=== PATIENT | female | born 1955 | race Caucasian/White ===

== ENCOUNTER 2017-09-17 05:12 | Inpatient (IN) | payer BC ==
--- NOTE | 2017-09-17 05:51 | EDM.PDOC ---
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 Annotation/Comment:: TSH mildly elevated with no history of medication noncompliance. Increase her Synthroid therapy with repeat TSH in 4 weeks (5) Influenza B SNOMED Code(s): 80865304 Code(s): J10.1 - FLU DUE TO OTH IDENT INFLUENZA VIRUS W OTH RESP MANIFEST Status: Acute Priority: High Current Visit: Yes Onset Date: ~09/10/17 Annotation/Comment:: Recent influenza the infection as above. Possible concomitant viral and right middle lobe bronchopneumonia with current Ceftin therapy with no significant improvement in symptoms. No leukocytosis or fever at this time. Initiate IV Rocephin and IV Zithromax and attempt to obtain a sputum specimen. Blood cultures 2 were collected (6) Influenza with bronchopneumonia SNOMED Code(s): 51002350 Code(s): J11.08 - FLU DUE TO UNIDENTIFIED FLU VIRUS W SPECIFIED PNEUMONIA; J12.89 - OTHER VIRAL PNEUMONIA Status: Acute Priority: High Current Visit : Yes Onset Date: ~09/17/17 Annotation/Comment:: Possible concomitant right middle lobe pneumonia as above (7) Mixed anxiety depressive disorder SNOMED Code(s): 106595413 Code(s): F41.8 - OTHER SPECIFIED ANXIETY DISORDERS Status: Acute Priority : High Current Visit: Yes Onset Date: 09/17/17 Annotation/Comment:: Good results of IV diazepam with no subsequent hyperventilation. Consider additional medical therapy, etc. (8) Osteoarthritis SNOMED Code(s): 214823704 Code(s): M19.90 - UNSPECIFIED OSTEOARTHRITIS, UNSPECIFIED SITE Status: Chronic Priority: Medium Current Visit: Yes Annotation/Comment:: Additional history of osteoporosis with lumbar vertebral body compression fracture. Otherwise stable by history Qualifiers: Osteoarthritis location: multiple joints Osteoarthritis type: primary Qualified Code(s): M15.0 - Primary generalized (osteo)arthritis (9) Peptic reflux disease SNOMED Code(s): 34742164 Code(s): K21.9 - GASTRO-ESOPHAGEAL REFLUX DISEASE WITHOUT ESOPHAGITIS Status: Chronic Priority: Medium Current Visit: Yes Annotation/Comment:: Recently diagnosed probable chronic cough secondary to GERD. Patient has yet to start her omeprazole secondary to her current illness. Initiate during this hospitalization (10) Pulmonary nodule SNOMED Code(s): 143312821 Code(s): R91.1 - SOLITARY PULMONARY NODULE Status: Acute Priority: High Current Visit: Yes Onset Date: 09/17/17 Annotation/Comment:: Newly diagnosed right upper lobe pulmonary nodule as above. Likely site of inflammation rather than true malignancy, however note previous history of tobacco use. Per recommendations of the radiologist CT scan of the chest should be repeated in about 3 months. - Problem List Review Problem List Initiated/Reviewed/Updated: Yes - My Orders Last 24 Hours: My Active Orders 09/17/17 05:52 Cardiac Monitoring [RC] CONTINUOUS Peripheral IV Care [RC] . DIRECTED Pulse Oximetry [RC] CONTINUOUS Up With Assistance [RC] ASDIRECTED Chest 1V Frontal [CR] Stat CULTURE SPUTUM + SMEAR [RM] Urgent Sodium Chloride 0.9% [Saline Flush] 10 ml FLUSH ASDIRECTED PRN Blood Culture x2 Reflex Set [OM.PC] Stat Obtain Past Medical Record [OM.PC] Stat Peripheral IV Insertion Adult [OM.PC] Stat Resuscitation Status Routine 09/17/17 05:59 EKG Documentation Completion [RC] ASDIRECTED 09/17/17 06:00 CULTURE STREP A CONFIRMATION [RM] Stat STREP SCRN A RAPID W CULT CONF [RM] Stat 09/17/17 06:05 CULTURE BLOOD [BC] Stat 09/17/17 06:15 CULTURE BLOOD [BC] Stat 09/17/17 06:20 Oxygen Therapy, ED [RC] CONTINUOUS 09/17/17 06:49 Chest PE [Ang Chest] [CT] Stat 09/17/17 07:30 Lactated Ringers [Ringers, Lactated] 1,000 ml IV ASDIRECTED 09/17/17 Breakfast Nothing Per Oral Diet [DIET] - Assessment/Plan Admission H&P: Please use this note as an admission H&P Last 24 Hours: My Active Orders 09/17/17 05:52 Cardiac Monitoring [RC] CONTINUOUS Peripheral IV Care [RC] . DIRECTED Pulse Oximetry [RC] CONTINUOUS Up With Assistance [RC] ASDIRECTED Chest 1V Frontal [CR] Stat CULTURE SPUTUM + SMEAR [RM] Urgent Sodium Chloride 0.9% [Saline Flush] 10 ml FLUSH ASDIRECTED PRN Blood Culture x2 Reflex Set [OM.PC] Stat Obtain Past Medical Record [OM.PC] Stat Peripheral IV Insertion Adult [OM.PC] Stat Resuscitation Status Routine 09/17/17 05:59 EKG Documentation Completion [RC] ASDIRECTED 09/17/17 06:00 CULTURE STREP A CONFIRMATION [RM] Stat STREP SCRN A RAPID W CULT CONF [RM] Stat 09/17/17 06:05 CULTURE BLOOD [BC] Stat 09/17/17 06:15 CULTURE BLOOD [BC] Stat 09/17/17 06:20 Oxygen Therapy, ED [RC] CONTINUOUS 09/17/17 06:49 Chest PE [Ang Chest] [CT] Stat 09/17/17 07:30 Lactated Ringers [Ringers, Lactated] 1,000 ml IV ASDIRECTED 09/17/17 Breakfast Nothing Per Oral Diet [DIET] Assessment:: As above Plan: As above. Extensive precautions were given to the patient and her daughter, who are in agreement with the treatment plan. The patient will require about 3-4 days of inpatient/acute care secondary to multiple health problems as above. [facility] physician will round on the patient tomorrow
[2017-09-17] MEDS: Sodium Chloride 0.9% 10 ML Syringe FLUSH PRN (06:10)
[2017-09-17] MEDS ORDERED: Lactated Ringers 1,000 ML IV ONE (06:12)
[2017-09-17 06:37] LABS: CHLORIDE,CL 105 mmol/L (98-107); SODIUM,NA 141 mmol/L (136-145)
[2017-09-17] MEDS ORDERED: Iopamidol 755 Mg/ML 100 ML Bottle IVPUSH ONE (07:00)
[2017-09-17] MEDS: Lactated Ringers 1,000 ML IV SCH ×2 (07:38→18:41)
[2017-09-17] MEDS ORDERED: Albuterol/Ipratropium 3.0-0.5 MG/3 ML Neb Soln NEB PRN (09:17)
[2017-09-17] MEDS ORDERED: Temazepam 15 MG Cap PO PRN (09:17)
[2017-09-17] MEDS ORDERED: Albuterol 0.083% 2.5 MG/3 ML Neb Soln NEB PRN (10:00)
[2017-09-17] MEDS: Levofloxacin/Dextrose 5%-Water 500 MG in Premix Bag 1 BAG IV SCH (10:19)
[2017-09-17] MEDS: Enoxaparin 40 MG/0.4 ML Syringe SUBCUT SCH ×2 (10:20→21:18)
[2017-09-17] MEDS: Levothyroxine 100 MCG Tab PO SCH (10:20)
[2017-09-17] MEDS: Sodium Chloride 0.9% 10 ML Syringe FLUSH SCH ×2 (10:25→21:37)
[2017-09-17] MEDS: Azithromycin 500 MG in Sodium Chloride 0.9% 250 ML IV SCH (12:37)
[2017-09-17] MEDS: Albuterol/Ipratropium 3.0-0.5 MG/3 ML Neb Soln NEB SCH ×2 (13:18→21:18)
[2017-09-17] MEDS ORDERED: LORazepam 2 MG/ML SDV IVPUSH ONE (13:59)
[2017-09-17] MEDS: Citalopram 20 MG Tab PO SCH (14:16)
[2017-09-17] MEDS: LORazepam 0.5 MG Tab PO SCH (17:37)
[2017-09-17] MEDS: Dextromethorphan/guaiFENesin 600-30 MG Tab.ER PO SCH (17:37)
[2017-09-17] MEDS: Budesonide 0.5 MG/2 ML Neb Susp NEB SCH (21:18)
[2017-09-18] MEDS: Albuterol/Ipratropium 3.0-0.5 MG/3 ML Neb Soln NEB SCH ×4 (03:05→20:50)
[2017-09-18] MEDS: Lactated Ringers 1,000 ML IV SCH (03:12)
[2017-09-18] MEDS: Dextromethorphan/guaiFENesin 600-30 MG Tab.ER PO SCH ×2 (07:28→17:04)
[2017-09-18] MEDS: Citalopram 20 MG Tab PO SCH (07:29)
[2017-09-18] MEDS: LORazepam 0.5 MG Tab PO SCH ×3 (07:29→23:39)
[2017-09-18] MEDS: Levothyroxine 100 MCG Tab PO SCH (07:29)
[2017-09-18] MEDS: Budesonide 0.5 MG/2 ML Neb Susp NEB SCH ×2 (07:31→20:50)
[2017-09-18 07:47] LABS: CHLORIDE,CL 111 mmol/L (98-107); SODIUM,NA 144 mmol/L (136-145)
[2017-09-18] MEDS: Enoxaparin 40 MG/0.4 ML Syringe SUBCUT SCH ×2 (10:14→21:12)
[2017-09-18] MEDS: Sodium Chloride 0.9% 10 ML Syringe FLUSH SCH ×2 (10:15→21:13)
[2017-09-18] MEDS: Levofloxacin/Dextrose 5%-Water 500 MG in Premix Bag 1 BAG IV SCH (10:15)
[2017-09-18] MEDS: Azithromycin 500 MG in Sodium Chloride 0.9% 250 ML IV SCH (11:45)
[2017-09-18] MEDS ORDERED: Magnesium Oxide 400 MG Tab PO ONE (12:57)
--- NOTE | 2017-09-18 13:18 | PCM.PN ---
- General Info Date of Service: 09/18/17 Admission Dx/Problem (Free Text): Influenza, shortness of breath, anxiety with dehydration Subjective Update: Patient feels about the same as yesterday. She reports feeling very anxious, also continues to feel weak and have mild sore throat. Shortness of breath is improved since she was evaluated in the ER. No new complaints. Functional Status: Reports: Pain Controlled, Tolerating Diet (Poor appetite), Ambulating. Denies: New Symptoms - Review of Systems General: Reports: Weakness, Fatigue. Denies: Fever, Malaise, Chills, Night Sweats HEENT: Reports: Rhinitis Pulmonary: Reports: Shortness of Breath, Cough (mild). Denies: Pleuritic Chest Pain, Sputum, Hemoptysis, Wheezing Cardiovascular: Reports: No Symptoms Gastrointestinal: Reports: Decreased Appetite, Diarrhea (mild). Denies: Abdominal Pain, Constipation, Difficulty Swallowing, Hematochezia, Melena, Nausea, Vomiting Genitourinary: Reports: No Symptoms Musculoskeletal: Reports: No Symptoms Skin: Reports: No Symptoms Neurological: Denies: Confusion, Dizziness, Headache, Numbness, Paresthesia, Seizure, Syncope, Trouble Speaking, Difficulty Walking, Weakness, Change in Speech, Gait Disturbance Psychiatric: Reports: Anxiety. Denies: Confusion, Depression, Cravings, Hallucinations, Suicidal Ideation, Homicidal Ideation - Patient Data Vitals - Most Recent: Last Vital Signs Temp 36.4 C 09/18/17 10:56 Pulse 82 09/18/17 10:56 Resp 22 H 09/18/17 04:00 BP 120/68 09/18/17 10:56 Pulse Ox 98 09/18/17 10:56 Weight - Most Recent: 73.119 kg I&O - Last 24 Hours: Intake & Output 09/17/17 09/18/17 09/18/17 22:59 06:59 14:59 Intake Total 650 120 500 Output Total 896 063 8377 Balance 250 -380 -800 Lab Results Last 24 Hours: Laboratory Results - last 24 hr 09/17/17 09/17/17 09/18/17 Range/Units 17:37 17:37 07:00 WBC 3.4 L (4.0-10.2) K/uL RBC 3.77 (3.77-5.09) M/uL Hgb 11.0 L D (11.7-15.5) g/dL Hct 34.2 (34.0-46.0) % MCV 90.7 (84.0-98.0) fL MCH 29.2 (28.2-33.3) pg MCHC 32.2 (31.7-36.0) g/dL RDW 14.8 H (11.2-14.1) % Plt Count 212 D (150-350) K/uL Neut % (Auto) 54.7 (45.0-80.0) % Lymph % (Auto) 30.1 (10.0-50.0) % [place] % (Auto) 14.3 H (2.0-14.0) % Eos % (Auto) 0.9 (0.0-5.0) % Baso % (Auto) 0.0 (0.0-2.0) % Neut # (Auto) 1.83 (1.40-7.00) K/uL Lymph # (Auto) 1.01 (0.50-3.50) K/uL [place] # (Auto) 0.48 (0.00-1.00) K/uL Eos # (Auto) 0.03 (0.00-0.50) K/uL Baso # (Auto) 0.00 (0.00-0.20) K/uL Sodium (136-145) mmol/L Potassium (3.5-5.1) mmol/L Chloride (98-107) mmol/L Carbon Dioxide (21.0-32.0) mmol/L BUN (7-18) mg/dL Creatinine (0.51-1.17) mg/dL Est Cr Clr Drug Dosing mL/min Estimated GFR (MDRD) mL/min Glucose (74-106) mg/dL Calcium (8.5-10.1) mg/dL Total Bilirubin (0.2-1.0) mg/dL AST (15-37) U/L ALT (12-78) U/L Alkaline Phosphatase (46-116) IU/L Creatine Kinase 24 L (26-308) U/L Creatine Kinase Index 0.8 (0.0-2.5) % CK-MB (CK-2) 0.20 (0.00-3.60) ng/mL Troponin I 0.025 (0.000-0.056) ng/mL Total Protein (6.4-8.2) g/dL Albumin (3.4-5.0) g/dL 09/18/17 Range/Units 07:00 WBC (4.0-10.2) K/uL RBC (3.77-5.09) M/uL Hgb (11.7-15.5) g/dL Hct (34.0-46.0) % MCV (84.0-98.0) fL MCH (28.2-33.3) pg MCHC (31.7-36.0) g/dL RDW (11.2-14.1) % Plt Count (150-350) K/uL Neut % (Auto) (45.0-80.0) % Lymph % (Auto) (10.0-50.0) % [place] % (Auto) (2.0-14.0) % Eos % (Auto) (0.0-5.0) % Baso % (Auto) (0.0-2.0) % Neut # (Auto) (1.40-7.00) K/uL Lymph # (Auto) (0.50-3.50) K/uL [place] # (Auto) (0.00-1.00) K/uL Eos # (Auto) (0.00-0.50) K/uL Baso # (Auto) (0.00-0.20) K/uL Sodium 144 (136-145) mmol/L Potassium 3.7 (3.5-5.1) mmol/L Chloride 111 H (98-107) mmol/L Carbon Dioxide 25.0 (21.0-32.0) mmol/L BUN 6 L (7-18) mg/dL Creatinine 0.67 (0.51-1.17) mg/dL Est Cr Clr Drug Dosing 78.34 mL/min Estimated GFR (MDRD) > 60 mL/min Glucose 98 (74-106) mg/dL Calcium 8.1 L (8.5-10.1) mg/dL Total Bilirubin 0.2 (0.2-1.0) mg/dL AST 22 (15-37) U/L ALT 23 (12-78) U/L Alkaline Phosphatase 47 (46-116) IU/L Creatine Kinase 19 L (26-308) U/L Creatine Kinase Index 0.5 (0.0-2.5) % CK-MB (CK-2) 0.10 (0.00-3.60) ng/mL Troponin I 0.030 (0.000-0.056) ng/mL Total Protein 5.6 L (6.4-8.2) g/dL Albumin 2.6 L (3.4-5.0) g/dL Max Results Last 24 Hours: Microbiology 09/17/17 17:50 Stool Occult Blood (MAX) - Final Stool / Feces NEGATIVE OCCULT BLOOD Med Orders - Current: Current Medications Albuterol (Proventil Neb Soln) 2.5 mg NEB Q2H PRN PRN Reason: Dyspnea Albuterol/Ipratropium (Duoneb 3.0-0.5 Mg/3 Ml) 3 ml NEB Q4HRRT PRN PRN Reason: Dyspnea Albuterol/Ipratropium (Duoneb 3.0-0.5 Mg/3 Ml) 3 ml NEB Q6HRRT [facility] Last Admin: 09/18/17 07:31 Dose: 3 ml Budesonide (Pulmicort) 0.5 mg NEB BIDRT [facility] Last Admin: 09/18/17 07:31 Dose: 0.5 mg Cholecalciferol (Vitamin D3) 2,000 units PO DAILY [facility] Citalopram Hydrobromide (Celexa) 20 mg PO DAILY [facility] Last Admin: 09/18/17 07:29 Dose: 20 mg Enoxaparin Sodium (Lovenox) 40 mg SUBCUT Q12H [facility] Last Admin: 09/18/17 10:14 Dose: 40 mg Guaifenesin/Dextromethorphan (Mucinex Dm Er 600-30 Mg) 1 tab PO BID [facility] Last Admin: 09/18/17 07:28 Dose: 1 tab Azithromycin 500 mg/ Sodium (Chloride) 250 mls @ 250 mls/hr IV Q24H [facility] Last Admin: 09/18/17 11:45 Dose: 250 mls/hr Levofloxacin/Dextrose 500 mg/ (Premix) 100 mls @ 100 mls/hr IV Q24H [facility] Last Admin: 09/18/17 10:15 Dose: 100 mls/hr Levothyroxine Sodium (Synthroid) 100 mcg PO ACBREAKFAST [facility] Last Admin: 09/18/17 07:29 Dose: 100 mcg Lorazepam (Ativan) 0.5 mg PO BID [facility] Last Admin: 09/18/17 07:29 Dose: 0.5 mg Magnesium Oxide (Magnesium Oxide) 400 mg PO ONETIME ONE Stop: 09/18/17 12:58 Sodium Chloride (Saline Flush) 10 ml FLUSH ASDIRECTED PRN PRN Reason: Keep Vein Open Last Admin: 09/17/17 06:10 Dose: 10 ml Sodium Chloride (Saline Flush) 10 ml FLUSH Q12H [facility] Last Admin: 09/18/17 10:15 Dose: 10 ml Temazepam (Restoril) 15 mg PO BEDTIME PRN PRN Reason: Insomnia Last Admin: 09/17/17 21:37 Dose: 15 mg Discontinued Medications Diazepam (Valium) 2.5 mg IVPUSH ONETIME ONE Stop: 09/17/17 05:53 Last Admin: 09/17/17 06:09 Dose: 2.5 mg Lactated Ringer's (Ringers, Lactated) 1,000 mls @ 999 mls/hr IV .BOLUS ONE Stop: 09/17/17 07:12 Last Admin: 09/17/17 06:14 Dose: 999 mls/hr Lactated Ringer's (Ringers, Lactated) 1,000 mls @ 100 mls/hr IV ASDIRECTED [facility] Last Admin: 09/18/17 03:12 Dose: 100 mls/hr Iopamidol (Isovue-370 (76%)) 100 ml IVPUSH ONETIME ONE Stop: 09/17/17 07:01 Last Admin: 09/17/17 07:34 Dose: 100 ml Lorazepam (Ativan) 1 mg IVPUSH ONETIME ONE Stop: 09/17/17 14:00 Last Admin: 09/17/17 14:30 Dose: 1 mg - Exam Quality Assessment: DVT Prophylaxis General: Alert, Oriented, Cooperative HEENT: Pupils Equal, Pupils Reactive Neck: Supple Lungs: Clear to Auscultation, Normal Respiratory Effort Cardiovascular: Regular Rate, Regular Rhythm GI/Abdominal Exam: Normal Bowel Sounds, Soft, Non-Tender, No Distention, No Mass (Female) Exam: Deferred Back Exam: Normal Inspection. No: CVA Tenderness (L), CVA Tenderness (R) Extremities: Normal Inspection, Normal Range of Motion, Non-Tender, No Pedal Edema, Normal Capillary Refill Peripheral Pulses: 2+: Radial (L), Radial (R) Skin: Warm, Dry, Intact Neurological: No New Focal Deficit Psy/Mental Status: Alert, Anxious. No: Depressed, Suicidal Ideation, Homicidal Ideation, Hallucinations - Problem List & Annotations (1) D-dimer, elevated SNOMED Code(s): 673509828 Code(s): R79.89 - OTHER SPECIFIED ABNORMAL FINDINGS OF BLOOD CHEMISTRY Status: Acute Priority: High Current Visit: Yes Onset Date: 09/17/17 Annotation/Comment:: Negative CTA evaluation of the chest for PE as well as negative venous dopplar study. Lovenox as DVT prophylaxis. (2) Influenza B SNOMED Code(s): 73668956 Code(s): J10.1 - FLU DUE TO OTH IDENT INFLUENZA VIRUS W OTH RESP MANIFEST Status: Acute Priority: High Current Visit: Yes Onset Date: ~09/10/17 Annotation/Comment:: Recent influenza the infection as above. Possible concomitant viral and right middle lobe bronchopneumonia with current Ceftin therapy with no significant improvement in symptoms. No leukocytosis or fever at this time. Initiate IV Rocephin and IV Zithromax and attempt to obtain a sputum specimen. Blood cultures 2 were collected (3) Influenza with bronchopneumonia SNOMED Code(s): 31175613 Code(s): J11.08 - FLU DUE TO UNIDENTIFIED FLU VIRUS W SPECIFIED PNEUMONIA; J12.89 - OTHER VIRAL PNEUMONIA Status: Acute Priority: High Current Visit : Yes Onset Date: ~09/17/17 Annotation/Comment:: Possible concomitant right middle lobe pneumonia as above (4) Dehydration SNOMED Code(s): 01550341 Code(s): E86.0 - DEHYDRATION Status: Acute Priority: High Current Visit : Yes Onset Date: ~09/17/17 Annotation/Comment:: Improved. Patient has been receiving IV fluids since admission. Will saline lock at this time and continue to observe. (5) Mixed anxiety depressive disorder SNOMED Code(s): 586169392 Code(s): F41.8 - OTHER SPECIFIED ANXIETY DISORDERS Status: Acute Priority : High Current Visit: Yes Onset Date: 09/17/17 Annotation/Comment:: Patient continues to feel very anxious. Says that she does not normally feel this way. She feels that the problem really started on Saturday, two days ago. No specific med changes at that time, however, whe was recently started on the nebulizer treatments which may be contributing factor to the anxiety. It is noted that patient's respiratory rate is improved when she is resting alone in the room. It increases very rapidly once someone comes in to the room and interacts with the patient. Was noted to be improved s/p Diazepam. (6) Pulmonary nodule SNOMED Code(s): 249988583 Code(s): R91.1 - SOLITARY PULMONARY NODULE Status: Acute Priority: High Current Visit: Yes Onset Date: 09/17/17 Annotation/Comment:: Newly diagnosed right upper lobe pulmonary nodule as above. Likely site of inflammation rather than true malignancy, however note previous history of tobacco use. Per recommendations of the radiologist CT scan of the chest should be repeated in about 3 months. (7) COPD (chronic obstructive pulmonary disease) SNOMED Code(s): 40263543 Code(s): J44.9 - CHRONIC OBSTRUCTIVE PULMONARY DISEASE, UNSPECIFIED Status : Chronic Priority: Medium Current Visit: Yes Qualifiers: COPD type: COPD with acute lower respiratory infection Qualified Code(s): J44.0 - Chronic obstructive pulmonary disease with acute lower respiratory infection Annotation/Comment:: Patient has been recently somewhat noncompliant with her nebulizer treatments as above. Attempt to reinitiate this therapy during this hospitalization. Note previous history of tobacco use. Consider PFTs once her current symptoms have resolved depending on her clinical course (8) Hypothyroidism (acquired) SNOMED Code(s): 033502778 Code(s): E03.9 - HYPOTHYROIDISM, UNSPECIFIED Status: Chronic Priority: Medium Current Visit: Yes Annotation/Comment:: TSH mildly elevated with no history of medication noncompliance. Increase her Synthroid therapy with repeat TSH in 4 weeks (9) Osteoarthritis SNOMED Code(s): 375612638 Code(s): M19.90 - UNSPECIFIED OSTEOARTHRITIS, UNSPECIFIED SITE Status: Chronic Priority: Medium Current Visit: Yes Qualifiers: Osteoarthritis location: multiple joints Osteoarthritis type: primary Qualified Code(s): M15.0 - Primary generalized (osteo)arthritis Annotation/Comment:: Additional history of osteoporosis with lumbar vertebral body compression fracture. Otherwise stable by history (10) Peptic reflux disease SNOMED Code(s): 70060018 Code(s): K21.9 - GASTRO-ESOPHAGEAL REFLUX DISEASE WITHOUT ESOPHAGITIS Status: Chronic Priority: Medium Current Visit: Yes Annotation/Comment:: Recently diagnosed probable chronic cough secondary to GERD. Patient has yet to start her omeprazole secondary to her current illness. Initiate during this hospitalization - Problem List Review Problem List Initiated/Reviewed/Updated: Yes - My Orders Last 24 Hours: My Active Orders 09/18/17 12:57 Magnesium Oxide 400 mg PO ONETIME ONE 09/18/17 13:30 Cholecalciferol (Vitamin D3) [Vitamin D3] 2,000 units PO DAILY - Assessment Assessment:: Patient with recent Influenza B diagnosis with dehydration and complaint of feeling SOB. Negative workup for P.E. Appears to have anxiety contributing to clinic picture. Has history of anxiety but patient denies feeling like this in past. Could be that recent introduction of neb treatments may be a factor. She continues to complain of having severe fatigue and mild sore throat. - Plan Plan:: Continue antibiotic therapy to cover for potential bronchopneumonia. Observe for changes. Patient is not acting like her usual self per daughter. Consider reducing frequency of nebulizer treatments to see if anxiety and feeling of malaise improves. Anticipate 1-2 more days of inpatient care given the above.
[2017-09-18] MEDS: Cholecalciferol (Vitamin D3) 1,000 Unit Tab PO SCH (14:00)
[2017-09-18] MEDS ORDERED: LORazepam 1 MG Tab PO ONE (17:36)
--- NOTE | 2017-09-18 17:37 | PCM.SN ---
- Free Text/Narrative Note: Negative UA/drug screen (+ Benzo/patient given these since admission)
[2017-09-18] MEDS ORDERED: Ondansetron 4 MG/2 ML SDV IVPUSH ONE (17:49)
[2017-09-18] MEDS ORDERED: LORazepam 2 MG/ML SDV IVPUSH ONE (17:50)
[2017-09-18] MEDS: Sodium Chloride 0.9% 10 ML Syringe FLUSH PRN (18:04)
[2017-09-19] MEDS: Albuterol/Ipratropium 3.0-0.5 MG/3 ML Neb Soln NEB SCH ×2 (02:19→07:46)
[2017-09-19] MEDS: Citalopram 20 MG Tab PO SCH (07:44)
[2017-09-19] MEDS: Levothyroxine 100 MCG Tab PO SCH (07:44)
[2017-09-19] MEDS: LORazepam 0.5 MG Tab PO SCH ×3 (07:44→20:18)
[2017-09-19] MEDS: Cholecalciferol (Vitamin D3) 1,000 Unit Tab PO SCH (07:45)
[2017-09-19] MEDS: Dextromethorphan/guaiFENesin 600-30 MG Tab.ER PO SCH ×2 (07:45→17:54)
[2017-09-19] MEDS: Budesonide 0.5 MG/2 ML Neb Susp NEB SCH ×2 (07:46→20:17)
--- NOTE | 2017-09-19 09:02 | PCM.PN ---
- General Info Date of Service: 09/19/17 Admission Dx/Problem (Free Text): 1. Bronchopneumonia 2. Influenza B 3. COPD 4. Deydration 5. Anxiety depression disorder with panic attacks Functional Status: Reports: Pain Controlled, Tolerating Diet, Ambulating ( Although activity limited), Urinating, New Symptoms (Recurrent intermittent panic attacks and hyperventilation), Incentive Spirometry Pain Score: 0 - Review of Systems General: Reports: Fever, Weakness (Improving slowly), Fatigue (Improving slowly) . Denies: Malaise, Chills, Night Sweats, Appetite (Adequate) HEENT: Reports: Post Nasal Drip, Sinus Congestion, Rhinitis. Denies: Dysphasia , Ear Pain, Eye Pain, Headaches, Sore Throat Pulmonary: Reports: Shortness of Breath (With hyperventilation), Cough. Denies : Pleuritic Chest Pain, Sputum, Hemoptysis, Wheezing Cardiovascular: Reports: No Symptoms. Denies: Chest Pain, Palpitations, Dyspnea on Exertion, Orthopnea, PND, Edema, Lightheadedness Gastrointestinal: Reports: No Symptoms, Other (Normal bowel movement yesterday per patient). Denies: Abdominal Pain, Constipation, Decreased Appetite, Diarrhea, Difficulty Swallowing, Flatus, Hematochezia, Melena, Nausea, Vomiting Genitourinary: Reports: No Symptoms. Denies: Dysuria, Frequency, Burning, Pain , Urgency, Incontinence, Hematuria, Retention, Flank Pain Musculoskeletal: Reports: No Symptoms. Denies: Neck Pain, Shoulder Pain, Arm Pain, Back Pain, Leg Pain Skin: Reports: Bruising (Lovenox sites). Denies: Diaphoresis Neurological: Reports: Weakness (Improving slowly). Denies: Confusion, Dizziness, Headache, Numbness, Paresthesia, Pre-Existing Deficit, Syncope, Tingling, Tremors, Trouble Speaking, Difficulty Walking, Gait Disturbance Psychiatric: Reports: Depression, Anxiety (With intermittent panic attacks). Denies: Confusion, Agitation, Cravings, Hallucinations, Suicidal Ideation, Homicidal Ideation - Patient Data Vitals - Most Recent: Last Vital Signs Temp 36.4 C 09/19/17 07:43 Pulse 64 09/19/17 07:43 Resp 20 09/19/17 04:00 BP 134/76 09/19/17 07:43 Pulse Ox 94 L 09/19/17 07:43 Vital Signs - 24 hr 09/18/17 09/18/17 09/18/17 10:56 12:00 16:00 Temperature [ 36.4 C 36.4 C Oral] Pulse, 82 73 Peripheral [ Pulse Oximetry] Respiratory 20 Rate Blood Pressure [Left Upper Arm ] Blood Pressure 120/68 134/75 [Right Upper Arm] O2 Sat by Pulse 98 98 98 Oximetry 09/18/17 09/19/17 09/19/17 20:00 00:00 04:00 Temperature [ 36.5 C 36.3 C 36.4 C Oral] Pulse, 88 68 64 Peripheral [ Pulse Oximetry] Respiratory 20 24 H 20 Rate Blood Pressure 143/88 H 135/84 129/74 [Left Upper Arm ] Blood Pressure [Right Upper Arm] O2 Sat by Pulse 92 L 98 93 L Oximetry 09/19/17 07:43 Temperature [ 36.4 C Oral] Pulse, 64 Peripheral [ Pulse Oximetry] Respiratory Rate Blood Pressure [Left Upper Arm ] Blood Pressure 134/76 [Right Upper Arm] O2 Sat by Pulse 94 L Oximetry Weight - Most Recent: 73.119 kg I&O - Last 24 Hours: Intake & Output 09/18/17 09/19/17 09/19/17 22:59 06:59 14:59 Intake Total 600 350 Output Total 1500 500 Balance -900 -150 Imaging Impressions - Last 24 Hours: teletypesetter monitor shows normal sinus rhythm with heart rates in the 60s to 70s with no ectopy or arrhythmia Lab Results Last 24 Hours: Laboratory Results - last 24 hr 09/18/17 09/18/17 Range/Units 14:50 14:50 Specimen Type Urinblad Urine Color Light yellow Urine Appearance Clear Urine pH 7.5 (5.0-9.0) Ur Specific [place] 1.015 (1.005-1.030) Urine Protein Negative (NEGATIVE) mg/dL Urine Glucose (UA) Negative (NEGATIVE) mg/dL Urine Ketones Negative (NEGATIVE) mg/dL Urine Occult Blood Negative (NEGATIVE) Urine Nitrite Negative (NEGATIVE) Urine Bilirubin Negative (NEGATIVE) Urine Urobilinogen 0.2 (0.2-1.0) E.U./dL Ur Leukocyte Esterase Negative (NEGATIVE) Urine RBC Not seen /HPF Urine WBC 0-5 /HPF Ur Epithelial Cells Rare /LPF Urine Bacteria Not seen (NONE TO FEW) /HPF Urine Opiates Screen Negative (NEGATIVE) Urine Methadone Screen Negative (NEGATIVE) U Acetaminophen Screen Negative (NEGATIVE) Ur Barbiturates Screen Negative (NEGATIVE) Ur Tricyclics Screen Negative (NEGATIVE) Ur Phencyclidine Scrn Negative (NEGATIVE) Ur Amphetamine Screen Negative (NEGATIVE) U Methamphetamines Scrn Negative (NEGATIVE) U Benzodiazepines Scrn Positive H (NEGATIVE) U Cocaine Metab Screen Negative (NEGATIVE) U Marijuana (THC) Screen Negative (NEGATIVE) Max Results Last 24 Hours: Microbiology 09/17/17 06:00 Throat Quick Strep Confirmation Culture - Final NO GROUP A STREP ISOLATED 09/17/17 06:00 Throat Group A Streptococcus Rapid Screen - Final NEGATIVE STREP A SCREEN 09/17/17 06:15 Blood - Venous - Lab Draw Aerobic Blood Culture - Preliminary NO GROWTH AFTER 2 DAYS 09/17/17 06:15 Blood - Venous - Lab Draw Anaerobic Blood Culture - Preliminary NO GROWTH AFTER 2 DAYS 09/17/17 06:05 Blood - Venous Aerobic Blood Culture - Preliminary NO GROWTH AFTER 2 DAYS 09/17/17 06:05 Blood - Venous Anaerobic Blood Culture - Preliminary NO GROWTH AFTER 2 DAYS 09/17/17 17:50 Stool / Feces Stool Occult Blood (MAX) - Final NEGATIVE OCCULT BLOOD Med Orders - Current: Current Medications Albuterol (Proventil Neb Soln) 2.5 mg NEB Q2H PRN PRN Reason: Dyspnea Albuterol/Ipratropium (Duoneb 3.0-0.5 Mg/3 Ml) 3 ml NEB Q4HRRT PRN PRN Reason: Dyspnea Budesonide (Pulmicort) 0.5 mg NEB BIDRT [facility] Last Admin: 09/19/17 07:46 Dose: Not Given Cholecalciferol (Vitamin D3) 2,000 units PO DAILY [facility] Last Admin: 09/19/17 07:45 Dose: 2,000 units Citalopram Hydrobromide (Celexa) 20 mg PO DAILY [facility] Last Admin: 09/19/17 07:44 Dose: 20 mg Enoxaparin Sodium (Lovenox) 40 mg SUBCUT Q12H [facility] Last Admin: 09/18/17 21:12 Dose: 40 mg Guaifenesin/Dextromethorphan (Mucinex Dm Er 600-30 Mg) 1 tab PO BID [facility] Last Admin: 09/19/17 07:45 Dose: 1 tab Azithromycin 500 mg/ Sodium (Chloride) 250 mls @ 250 mls/hr IV Q24H [facility] Last Admin: 09/18/17 11:45 Dose: 250 mls/hr Levofloxacin/Dextrose 500 mg/ (Premix) 100 mls @ 100 mls/hr IV Q24H [facility] Last Admin: 09/18/17 10:15 Dose: 100 mls/hr Levothyroxine Sodium (Synthroid) 100 mcg PO ACBREAKFAST [facility] Last Admin: 09/19/17 07:44 Dose: 100 mcg Lorazepam (Ativan) 0.5 mg PO Q8H [facility] Sodium Chloride (Saline Flush) 10 ml FLUSH ASDIRECTED PRN PRN Reason: Keep Vein Open Last Admin: 09/18/17 18:04 Dose: 10 ml Sodium Chloride (Saline Flush) 10 ml FLUSH Q12H [facility] Last Admin: 09/18/17 21:13 Dose: 10 ml Discontinued Medications Albuterol/Ipratropium (Duoneb 3.0-0.5 Mg/3 Ml) 3 ml NEB Q6HRRT [facility] Last Admin: 09/19/17 07:46 Dose: Not Given Diazepam (Valium) 2.5 mg IVPUSH ONETIME ONE Stop: 09/17/17 05:53 Last Admin: 09/17/17 06:09 Dose: 2.5 mg Lactated Ringer's (Ringers, Lactated) 1,000 mls @ 999 mls/hr IV .BOLUS ONE Stop: 09/17/17 07:12 Last Admin: 09/17/17 06:14 Dose: 999 mls/hr Lactated Ringer's (Ringers, Lactated) 1,000 mls @ 100 mls/hr IV ASDIRECTED [facility] Last Admin: 09/18/17 03:12 Dose: 100 mls/hr Iopamidol (Isovue-370 (76%)) 100 ml IVPUSH ONETIME ONE Stop: 09/17/17 07:01 Last Admin: 09/17/17 07:34 Dose: 100 ml Lorazepam (Ativan) 1 mg IVPUSH ONETIME ONE Stop: 09/17/17 14:00 Last Admin: 09/17/17 14:30 Dose: 1 mg Lorazepam (Ativan) 0.5 mg PO BID [facility] Last Admin: 09/18/17 07:29 Dose: 0.5 mg Lorazepam (Ativan) 0.5 mg PO Q12HR [facility] Last Admin: 09/19/17 07:44 Dose: 0.5 mg Lorazepam (Ativan) 1 mg PO ONETIME ONE Stop: 09/18/17 17:37 Last Admin: 09/18/17 18:11 Dose: Not Given Lorazepam (Ativan) 1 mg IVPUSH ONETIME ONE Stop: 09/18/17 17:51 Last Admin: 09/18/17 18:03 Dose: 1 mg Magnesium Oxide (Magnesium Oxide) 400 mg PO ONETIME ONE Stop: 09/18/17 12:58 Last Admin: 09/18/17 14:00 Dose: 400 mg Ondansetron HCl (Zofran) 4 mg IVPUSH ONETIME ONE Stop: 09/18/17 17:50 Last Admin: 09/18/17 18:04 Dose: 4 mg Temazepam (Restoril) 15 mg PO BEDTIME PRN PRN Reason: Insomnia Last Admin: 09/17/17 21:37 Dose: 15 mg - Exam Quality Assessment: Supplemental Oxygen, DVT Prophylaxis (Lovenox). No: Central Line/PICC, Urine Catheter, Skin Breakdown, Restraints General: Alert, Oriented, Cooperative, No Acute Distress HEENT: Pupils Equal, Pupils Reactive, EOMI, Mucous Membr. Moist/[place] Neck: Supple, Trachea Midline, No JVD, No Thyromegaly, +2 Carotid Pulse wo Bruit. No: Lymphadenopathy Lungs: Normal Respiratory Effort, Rales (Mild bilateral basal). No: Rhonchi, Rub, Wheezing Cardiovascular: Regular Rate, Regular Rhythm, No Murmurs. No: Gallops, Rubs GI/Abdominal Exam: Normal Bowel Sounds, Soft, Non-Tender, No Organomegaly, No Distention, No Abnormal Bruit, No Mass. No: Guarding (Female) Exam: Deferred Back Exam: Normal Inspection, Full Range of Motion. No: CVA Tenderness (L), CVA Tenderness (R), Muscle Spasm Extremities: Normal Inspection, Normal Range of Motion, Non-Tender, No Pedal Edema, Normal Capillary Refill. No: Corinne's Sign Peripheral Pulses: 2+: Radial (L), Radial (R), Dorsalis Pedis (L), Dorsalis Pedis (R) Skin: Ecchymosis (Lovenox sites) Neurological: No New Focal Deficit, Other (No clinical orthostasis) Psy/Mental Status: Anxious (Moderate to severe intermittent panic attacks however calm during exam), Depressed (Moderate, adequate eye contact). No: Agitated, Suicidal Ideation, Homicidal Ideation, Hallucinations, Withdrawal Symptoms - Problem List & Annotations (1) Influenza with bronchopneumonia SNOMED Code(s): 07591861 Code(s): J11.08 - FLU DUE TO UNIDENTIFIED FLU VIRUS W SPECIFIED PNEUMONIA; J12.89 - OTHER VIRAL PNEUMONIA Status: Acute Priority: High Current Visit : Yes Onset Date: ~09/17/17 Annotation/Comment:: Possible concomitant right middle lobe pneumonia as below. Chest x-ray and blood work are to be repeated tomorrow (2) Influenza B SNOMED Code(s): 96383315 Code(s): J10.1 - FLU DUE TO OTH IDENT INFLUENZA VIRUS W OTH RESP MANIFEST Status: Acute Priority: High Current Visit: Yes Onset Date: ~09/10/17 Annotation/Comment:: Recent influenza B infection prior to admission as per emergency room note. Possible concomitant viral and right middle lobe bronchopneumonia with Ceftin therapy prior to admission with no significant improvement in symptoms. No leukocytosis or fever at this time. Continue IV Rocephin and IV Zithromax and attempt to obtain a sputum specimen. Blood cultures 2 are negative to this point. [facility] physician to decide whether about Ceftin should be completed at discharge and/or additional oral Zithromax will be prescribed at planned discharge tomorrow (3) COPD (chronic obstructive pulmonary disease) SNOMED Code(s): 65567997 Code(s): J44.9 - CHRONIC OBSTRUCTIVE PULMONARY DISEASE, UNSPECIFIED Status : Chronic Priority: Medium Current Visit: Yes Qualifiers: COPD type: COPD with acute lower respiratory infection Qualified Code(s): J44.0 - Chronic obstructive pulmonary disease with acute lower respiratory infection Annotation/Comment:: Patient does not want to continue her nebulizer treatments secondary to worsening anxiety and panic attacks with this medication. Per her request nebulizer treatments will be changed to a when necessary basis, although incentive spirometry will be continued at least on a 4 times a day basis. Patient had been recently somewhat noncompliant with her nebulizer treatments are to admission despite her current influenza and bronchitis. above.Note previous history of tobacco use. Consider PFTs on an outpatient basis once her current symptoms have resolved depending on her clinical course (4) Mixed anxiety depressive disorder SNOMED Code(s): 792676776 Code(s): F41.8 - OTHER SPECIFIED ANXIETY DISORDERS Status: Acute Priority : High Current Visit: Yes Onset Date: 09/17/17 Annotation/Comment:: Patient continues to have breakthrough panic attacks with significant hyperventilation with IV Ativan required yesterday. Increase low-dose oral Ativan today with this medication to be used on a short-term basis only. Recommend evaluation by her regular provider in about one week after hospital discharge with strong consideration of slow downward tapering of this medication at that time. Celexa has been initiated with this medication to be continued for at least 6-12 months with subsequent slow tapering regimen recommended thereafter. Otherwise further medication adjustment, counseling, etc. to be determined by regular provider at one week follow-up as above. The above treatment plan was extensively discussed with the patient during rounds today. Emotional support was also provided. (5) D-dimer, elevated SNOMED Code(s): 512771659 Code(s): R79.89 - OTHER SPECIFIED ABNORMAL FINDINGS OF BLOOD CHEMISTRY Status: Acute Priority: High Current Visit: Yes Onset Date: 09/17/17 Annotation/Comment:: Negative CTA evaluation of the chest for PE as well as negative venous dopplar study of the lower extremities. Continue low-dose Lovenox as DVT prophylaxis. (6) Dehydration SNOMED Code(s): 09203068 Code(s): E86.0 - DEHYDRATION Status: Acute Priority: High Current Visit : Yes Onset Date: ~09/17/17 Annotation/Comment:: Dehydration is resolved with adequate oral intake. IV fluids were [facility]. (7) Hypothyroidism (acquired) SNOMED Code(s): 844347863 Code(s): E03.9 - HYPOTHYROIDISM, UNSPECIFIED Status: Chronic Priority: Medium Current Visit: Yes Annotation/Comment:: TSH mildly elevated on admission with no history of medication noncompliance. Increase her Synthroid therapy with repeat TSH in 4 weeks by her regular provider (8) Osteoarthritis SNOMED Code(s): 867676364 Code(s): M19.90 - UNSPECIFIED OSTEOARTHRITIS, UNSPECIFIED SITE Status: Chronic Priority: Medium Current Visit: Yes Qualifiers: Osteoarthritis location: multiple joints Osteoarthritis type: primary Qualified Code(s): M15.0 - Primary generalized (osteo)arthritis Annotation/Comment:: Additional history of osteoporosis with lumbar vertebral body compression fracture. Otherwise stable by history (9) Peptic reflux disease SNOMED Code(s): 76003975 Code(s): K21.9 - GASTRO-ESOPHAGEAL REFLUX DISEASE WITHOUT ESOPHAGITIS Status: Chronic Priority: Medium Current Visit: Yes Annotation/Comment:: Recently diagnosed probable chronic cough secondary to GERD. Patient had yet to start her omeprazole secondary to her current illness. Initiated during this hospitalization with medication compliance concurred (10) Pulmonary nodule SNOMED Code(s): 754167422 Code(s): R91.1 - SOLITARY PULMONARY NODULE Status: Acute Priority: High Current Visit: Yes Onset Date: 09/17/17 Annotation/Comment:: Newly diagnosed right upper lobe pulmonary nodule by CT scan on admission. Likely site of inflammation rather than true malignancy, however note previous history of tobacco use. Per recommendations of the radiologist CT scan of the chest should be repeated in about 3 months. (11) Hypoalbuminemia SNOMED Code(s): 232213343 Code(s): E88.09 - OTH DISORDERS OF PLASMA-PROTEIN METABOLISM, NEC Status: Acute Priority: Medium Current Visit: Yes Onset Date: 09/18/17 Annotation/Comment:: Variable total protein and albumin studies. Blood work to be repeated tomorrow. Consider high protein Glucerna supplements twice a day as snacks, if hypoalbuminemia persists. (12) Anemia SNOMED Code(s): 848477051 Code(s): D64.9 - ANEMIA, UNSPECIFIED Status: Acute Current Visit: Yes Qualifiers: Anemia type: unspecified type Qualified Code(s): D64.9 - Anemia, unspecified Annotation/Comment:: Mild anemia yesterday. Note negative Hemoccult. Omeprazole initiated today. No indication of acute bleeding despite Lovenox therapy as above. Discontinue Lovenox today with patient to be more ambulatory and walked on at least a every shift basis. Further workup depending on her clinical course - Problem List Review Problem List Initiated/Reviewed/Updated: Yes - My Orders Last 24 Hours: My Active Orders 09/19/17 09:18 Vital Signs [RC] Q8HR 09/19/17 12:00 LORazepam [Ativan] 0.5 mg PO Q8H 09/20/17 05:11 Chest 2V [CR] Routine CBC WITH AUTO DIFF [HEME] Routine COMPREHENSIVE METABOLIC PN,CMP [CHEM] Routine FOLIC ACID [CHEM] Routine VITAMIN B12 [CHEM] Routine - Assessment Assessment:: as above - Plan Plan:: As above. Extensive precautions were given to the patient, who is in agreement with the treatment plan. Anticipate 1 additional day of inpatient hospitalization as above. [facility] physician to evaluate the patient tomorrow
[2017-09-19] MEDS: Omeprazole 20 MG Cap.CR PO SCH (10:04)
[2017-09-19] MEDS: Levofloxacin/Dextrose 5%-Water 500 MG in Premix Bag 1 BAG IV SCH (10:04)
[2017-09-19] MEDS: Sodium Chloride 0.9% 10 ML Syringe FLUSH SCH ×2 (10:09→21:45)
[2017-09-19] MEDS: Azithromycin 500 MG in Sodium Chloride 0.9% 250 ML IV SCH (11:16)
[2017-09-19] MEDS ORDERED: Ondansetron 4 MG/2 ML SDV IVPUSH PRN (12:00)
[2017-09-20] MEDS: LORazepam 0.5 MG Tab PO SCH ×2 (04:00→11:01)
[2017-09-20] MEDS: Omeprazole 20 MG Cap.CR PO SCH (08:02)
[2017-09-20] MEDS: Cholecalciferol (Vitamin D3) 1,000 Unit Tab PO SCH (08:02)
[2017-09-20] MEDS: Levothyroxine 100 MCG Tab PO SCH (08:02)
[2017-09-20] MEDS: Citalopram 20 MG Tab PO SCH (08:02)
[2017-09-20] MEDS: Dextromethorphan/guaiFENesin 600-30 MG Tab.ER PO SCH (08:02)
[2017-09-20] MEDS: Budesonide 0.5 MG/2 ML Neb Susp NEB SCH (08:02)
[2017-09-20 08:25] LABS: CHLORIDE,CL 109 mmol/L (98-107); SODIUM,NA 144 mmol/L (136-145)
[2017-09-20] MEDS: Sodium Chloride 0.9% 10 ML Syringe FLUSH SCH (09:17)
[2017-09-20] MEDS: Levofloxacin/Dextrose 5%-Water 500 MG in Premix Bag 1 BAG IV SCH (09:18)
[2017-09-20] MEDS: Azithromycin 500 MG in Sodium Chloride 0.9% 250 ML IV SCH (10:42)
[2017-09-20] MEDS: Sodium Chloride 0.9% 10 ML Syringe FLUSH PRN (10:43)
[2017-09-20] MEDS ORDERED: Azithromycin 250 MG Tab PO ONE (10:56)
--- NOTE | 2017-09-20 14:11 | PCM.DCSUM1 ---
Discharge Summary - Hospital Course Brief History: Patient admitted for respiratory complaint/SOB. Negative workup for PE. Influenza B + by history. Admitted for further workup and antibiotic therapy. - Discharge Data Discharge Date: 09/20/17 Discharge Disposition: DC/Tfer to Acute Hospital 02 Condition: Good - Discharge Diagnosis/Problem(s) (1) Mixed anxiety depressive disorder SNOMED Code(s): 810798954 ICD Code: F41.8 - OTHER SPECIFIED ANXIETY DISORDERS Status: Acute Priority: High Current Visit: Yes Onset Date: 09/17/17 Problem Details: Patient continues to have breakthrough panic attacks with significant hyperventilation with IV Ativan required. Increase low-dose oral Ativan. Celexa has been initiated. Has history of some depression and anxiety, but not at all to the degree that has been observed this past week. Uncertain if recent medications or illness acted as a trigger. Neither patient nor family feel that she is currently OK to go home and be alone. Not suicidal or homicidal. (2) Influenza B SNOMED Code(s): 10683326 ICD Code: J10.1 - FLU DUE TO OTH IDENT INFLUENZA VIRUS W OTH RESP MANIFEST Status: Acute Priority: [facility] Current Visit: Yes Onset Date: ~09/10/17 Problem Details: Recent influenza B infection prior to admission as per emergency room note. Possible concomitant viral and right middle lobe bronchopneumonia with Ceftin therapy prior to admission and IV antibiotics initiated after admission. No leukocytosis or fever at this time. Blood cultures 2 are negative to this point. (3) D-dimer, elevated SNOMED Code(s): 885499066 ICD Code: R79.89 - OTHER SPECIFIED ABNORMAL FINDINGS OF BLOOD CHEMISTRY Status: Acute Priority: [facility] Current Visit: Yes Onset Date: 09/17/17 Problem Details: Negative CTA evaluation of the chest for PE as well as negative venous dopplar study of the lower extremities.Lovenox as DVT prophylaxis. (4) Dehydration SNOMED Code(s): 03375316 ICD Code: E86.0 - DEHYDRATION Status: Acute Priority: [facility] Current Visit: Yes Onset Date: ~09/17/17 Problem Details: Dehydration is resolved with adequate oral intake. (5) Influenza with bronchopneumonia SNOMED Code(s): 62040118 ICD Code: J11.08 - FLU DUE TO UNIDENTIFIED FLU VIRUS W SPECIFIED PNEUMONIA; J12.89 - OTHER VIRAL PNEUMONIA Status: Acute Priority: High Current Visit : Yes Onset Date: ~09/17/17 (6) COPD (chronic obstructive pulmonary disease) SNOMED Code(s): 19505292 ICD Code: J44.9 - CHRONIC OBSTRUCTIVE PULMONARY DISEASE, UNSPECIFIED Status : Chronic Priority: Medium Current Visit: Yes Problem Details: Patient does not want to continue her nebulizer treatments secondary to worsening anxiety and panic attacks with this medication. Per her request nebulizer treatments will be changed to a when necessary basis, although incentive spirometry will be continued at least on a 4 times a day basis. Patient had been recently somewhat noncompliant with her nebulizer treatments are to admission despite her current influenza and bronchitis. above.Note previous history of tobacco use. Consider PFTs on an outpatient basis once her current symptoms have resolved depending on her clinical course Qualifiers: COPD type: COPD with acute lower respiratory infection Qualified Code(s): J44.0 - Chronic obstructive pulmonary disease with acute lower respiratory infection (7) Pulmonary nodule SNOMED Code(s): 265038810 ICD Code: R91.1 - SOLITARY PULMONARY NODULE Status: Acute Priority: High Current Visit: Yes Onset Date: 09/17/17 Problem Details: Newly diagnosed right upper lobe pulmonary nodule by CT scan on admission. Likely site of inflammation rather than true malignancy, however note previous history of tobacco use. Per recommendations of the radiologist CT scan of the chest should be repeated in about 3 months. (8) Hypothyroidism (acquired) SNOMED Code(s): 054166034 ICD Code: E03.9 - HYPOTHYROIDISM, UNSPECIFIED Status: Chronic Priority: Medium Current Visit: Yes Problem Details: TSH mildly elevated on admission with no history of medication noncompliance. Increase her Synthroid therapy with repeat TSH in 4 weeks by her regular provider (9) Osteoarthritis SNOMED Code(s): 256485006 ICD Code: M19.90 - UNSPECIFIED OSTEOARTHRITIS, UNSPECIFIED SITE Status: Chronic Priority: Medium Current Visit: Yes Problem Details: Additional history of osteoporosis with lumbar vertebral body compression fracture. Otherwise stable by history Qualifiers: Osteoarthritis location: multiple joints Osteoarthritis type: primary Qualified Code(s): M15.0 - Primary generalized (osteo)arthritis (10) Peptic reflux disease SNOMED Code(s): 31333596 ICD Code: K21.9 - GASTRO-ESOPHAGEAL REFLUX DISEASE WITHOUT ESOPHAGITIS Status: Chronic Priority: Medium Current Visit: Yes Problem Details: Recently diagnosed probable chronic cough secondary to GERD. Patient had yet to start her omeprazole secondary to her current illness. Initiated during this hospitalization with medication compliance concurred - Patient Summary/Data Hospital Course: Patient continued to have significant anxiety during her stay in our facility. Improvement noted when she received Ativan. Also some improvement when patient observed sleeping. Noticeably worse whenever staff approached her and interacted with the patient. Again, no history of such significant problems in the past. Patient normal self per family on . Change started to appear after diagnosis of Influenza B on . No PO steroids given. Nebs and Ceftin added to med regimen at that time. WBC remained depressed, consistent with viral type of infection. Vital signs remained overall stable. Nebs were changes to PRN as patient said they made her anxiety sensation worse. She did not have a significant improvement however when frequency of nebs greatly reduced. As patient came to 96 hr taryn, she shared that she does feel as though she can safely go home due to not feeling like her usual self and the panic feelings that she has been experiencing. Family does not feel that patient can return home either (she lives by herself). Call placed to [facility]. Once situation was discussed, agreed to accept the patient in transfer for evaluation at their facility. At this time patient will at least be likely able to have psych consult to help with a more complete workup of this behavior change. Differential includes medication-induced change, or (less likely) viral encephalitis. - Patient Instructions Driving: Do Not Drive Other/Special Instructions: Go directly to [facility] for admission - Discharge Plan Home Medications: Home Meds Levothyroxine [Synthroid] 88 mcg PO DAILY 03/16/14 [History] Multivitamins [Tab-A-Mindy] 1 tab PO DAILY 03/18/14 [History] Cefuroxime [Ceftin] 500 mg PO BID 09/17/17 [History] Zoledronic Acid in Water [Reclast] 1 infusion IV ASDIRECTED 09/17/17 [History] - Discharge Summary/Plan Comment DC Time >30 min.: No - General Info Date of Service: 09/20/17 Admission Dx/Problem (Free Text: 1. Bronchopneumonia 2. Influenza B 3. COPD 4. Deydration 5. Anxiety depression disorder with panic attacks Subjective Update: Patient feels about the same as yesterday. She reports feeling very anxious, also continues to feel weak and have mild sore throat. Shortness of breath is improved since she was evaluated in the ER. No new complaints. Numeric/FACES Score: 0 - Review of Systems General: Reports: Fatigue HEENT: Reports: Sore Throat, Rhinitis Pulmonary: Reports: Shortness of Breath (during feelings of anxiety), Cough ( stable, at baseline per patient) Cardiovascular: Denies: Chest Pain, Palpitations, Dyspnea on Exertion, Lightheadedness Gastrointestinal: Reports: No Symptoms Genitourinary: Reports: No Symptoms Musculoskeletal: Reports: No Symptoms Skin: Reports: No Symptoms Neurological: Denies: Confusion, Dizziness, Headache, Numbness, Pre-Existing Deficit, Trouble Speaking, Difficulty Walking, Weakness, Change in Speech, Gait Disturbance Psychiatric: Reports: Other (Does not feel like herself, constantly feels anxious, on edge) - Patient Data Vitals - Most Recent: Last Vital Signs Temp 36.5 C 09/20/17 07:56 Pulse 64 09/20/17 07:56 Resp 15 09/20/17 07:56 BP 118/55 L 09/20/17 07:56 Pulse Ox 94 L 09/20/17 08:00 Weight - Most Recent: 71.033 kg I&O - Last 24 hours: Intake & Output 09/19/17 09/20/17 09/20/17 22:59 06:59 14:59 Intake Total 667 86 0330 Output Total 900 400 Balance -200 50 872 Lab Results - Last 24 hrs: Laboratory Results - last 24 hr 09/20/17 09/20/17 09/20/17 Range/Units 07:25 07:25 07:25 WBC 3.8 L (4.0-10.2) K/uL RBC 4.21 (3.77-5.09) M/uL Hgb 12.2 (11.7-15.5) g/dL Hct 38.1 (34.0-46.0) % MCV 90.5 (84.0-98.0) fL MCH 29.0 (28.2-33.3) pg MCHC 32.0 (31.7-36.0) g/dL RDW 15.0 H (11.2-14.1) % Plt Count 278 (150-350) K/uL Neut % (Auto) 54.4 (45.0-80.0) % Lymph % (Auto) 25.3 (10.0-50.0) % [place] % (Auto) 16.3 H (2.0-14.0) % Eos % (Auto) 3.7 (0.0-5.0) % Baso % (Auto) 0.3 (0.0-2.0) % Neut # (Auto) 2.07 (1.40-7.00) K/uL Lymph # (Auto) 0.96 (0.50-3.50) K/uL [place] # (Auto) 0.62 (0.00-1.00) K/uL Eos # (Auto) 0.14 (0.00-0.50) K/uL Baso # (Auto) 0.01 (0.00-0.20) K/uL Sodium 144 (136-145) mmol/L Potassium 3.9 (3.5-5.1) mmol/L Chloride 109 H (98-107) mmol/L Carbon Dioxide 24.5 (21.0-32.0) mmol/L BUN 5 L (7-18) mg/dL Creatinine 0.88 (0.51-1.17) mg/dL Est Cr Clr Drug Dosing 59.55 mL/min Estimated GFR (MDRD) > 60 mL/min Glucose 92 (74-106) mg/dL Calcium 8.7 (8.5-10.1) mg/dL Iron 55 (50-175) ug/dL TIBC 233 L (250-450) ug/dL % Saturation 23.23228 Total Bilirubin 0.3 (0.2-1.0) mg/dL AST 73 H (15-37) U/L ALT 63 (12-78) U/L Alkaline Phosphatase 56 (46-116) IU/L Troponin I (0.000-0.056) ng/mL Total Protein 6.2 L (6.4-8.2) g/dL Albumin 3.0 L (3.4-5.0) g/dL Amylase 61 (25-115) U/L Lipase 115 (73-393) U/L Vitamin B12 2038 H (193-986) pg/mL Folate 23.6 (8.6-58.9) ng/mL 09/20/17 Range/Units 07:25 WBC (4.0-10.2) K/uL RBC (3.77-5.09) M/uL Hgb (11.7-15.5) g/dL Hct (34.0-46.0) % MCV (84.0-98.0) fL MCH (28.2-33.3) pg MCHC (31.7-36.0) g/dL RDW (11.2-14.1) % Plt Count (150-350) K/uL Neut % (Auto) (45.0-80.0) % Lymph % (Auto) (10.0-50.0) % [place] % (Auto) (2.0-14.0) % Eos % (Auto) (0.0-5.0) % Baso % (Auto) (0.0-2.0) % Neut # (Auto) (1.40-7.00) K/uL Lymph # (Auto) (0.50-3.50) K/uL [place] # (Auto) (0.00-1.00) K/uL Eos # (Auto) (0.00-0.50) K/uL Baso # (Auto) (0.00-0.20) K/uL Sodium (136-145) mmol/L Potassium (3.5-5.1) mmol/L Chloride (98-107) mmol/L Carbon Dioxide (21.0-32.0) mmol/L BUN (7-18) mg/dL Creatinine (0.51-1.17) mg/dL Est Cr Clr Drug Dosing mL/min Estimated GFR (MDRD) mL/min Glucose (74-106) mg/dL Calcium (8.5-10.1) mg/dL Iron (50-175) ug/dL TIBC (250-450) ug/dL % Saturation Total Bilirubin (0.2-1.0) mg/dL AST (15-37) U/L ALT (12-78) U/L Alkaline Phosphatase (46-116) IU/L Troponin I 0.008 (0.000-0.056) ng/mL Total Protein (6.4-8.2) g/dL Albumin (3.4-5.0) g/dL Amylase (25-115) U/L Lipase (73-393) U/L Vitamin B12 (193-986) pg/mL Folate (8.6-58.9) ng/mL Med Orders - Current: Current Medications Albuterol (Proventil Neb Soln) 2.5 mg NEB Q2H PRN PRN Reason: Dyspnea Albuterol/Ipratropium (Duoneb 3.0-0.5 Mg/3 Ml) 3 ml NEB Q4HRRT PRN PRN Reason: Dyspnea Budesonide (Pulmicort) 0.5 mg NEB BIDRT [facility] Last Admin: 09/20/17 08:02 Dose: 0.5 mg Cholecalciferol (Vitamin D3) 2,000 units PO DAILY [facility] Last Admin: 09/20/17 08:02 Dose: 2,000 units Citalopram Hydrobromide (Celexa) 20 mg PO DAILY [facility] Last Admin: 09/20/17 08:02 Dose: 20 mg Guaifenesin/Dextromethorphan (Mucinex Dm Er 600-30 Mg) 1 tab PO BID [facility] Last Admin: 09/20/17 08:02 Dose: 1 tab Levothyroxine Sodium (Synthroid) 100 mcg PO ACBREAKFAST [facility] Last Admin: 09/20/17 08:02 Dose: 100 mcg Lorazepam (Ativan) 0.5 mg PO Q8H [facility] Last Admin: 09/20/17 11:01 Dose: 0.5 mg Omeprazole (Omeprazole) 20 mg PO DAILY [facility] Last Admin: 09/20/17 08:02 Dose: 20 mg Ondansetron HCl (Zofran) 4 mg IVPUSH Q6H PRN PRN Reason: Nausea/Vomiting Last Admin: 09/19/17 11:49 Dose: 4 mg Sodium Chloride (Saline Flush) 10 ml FLUSH ASDIRECTED PRN PRN Reason: Keep Vein Open Last Admin: 09/20/17 10:43 Dose: 10 ml Sodium Chloride (Saline Flush) 10 ml FLUSH Q12H [facility] Last Admin: 09/20/17 09:17 Dose: 10 ml Discontinued Medications Albuterol/Ipratropium (Duoneb 3.0-0.5 Mg/3 Ml) 3 ml NEB Q6HRRT [facility] Last Admin: 09/19/17 07:46 Dose: Not Given Azithromycin (Zithromax) 500 mg PO ONETIME ONE Stop: 09/20/17 10:57 Last Admin: 09/20/17 11:21 Dose: 500 mg Diazepam (Valium) 2.5 mg IVPUSH ONETIME ONE Stop: 09/17/17 05:53 Last Admin: 09/17/17 06:09 Dose: 2.5 mg Enoxaparin Sodium (Lovenox) 40 mg SUBCUT Q12H [facility] Last Admin: 09/18/17 21:12 Dose: 40 mg Lactated Ringer's (Ringers, Lactated) 1,000 mls @ 999 mls/hr IV .BOLUS ONE Stop: 09/17/17 07:12 Last Admin: 09/17/17 06:14 Dose: 999 mls/hr Lactated Ringer's (Ringers, Lactated) 1,000 mls @ 100 mls/hr IV ASDIRECTED [facility] Last Admin: 09/18/17 03:12 Dose: 100 mls/hr Azithromycin 500 mg/ Sodium (Chloride) 250 mls @ 250 mls/hr IV Q24H [facility] Last Admin: 09/20/17 10:42 Dose: 250 mls/hr Levofloxacin/Dextrose 500 mg/ (Premix) 100 mls @ 100 mls/hr IV Q24H [facility] Last Admin: 09/20/17 09:18 Dose: 100 mls/hr Iopamidol (Isovue-370 (76%)) 100 ml IVPUSH ONETIME ONE Stop: 09/17/17 07:01 Last Admin: 09/17/17 07:34 Dose: 100 ml Lorazepam (Ativan) 1 mg IVPUSH ONETIME ONE Stop: 09/17/17 14:00 Last Admin: 09/17/17 14:30 Dose: 1 mg Lorazepam (Ativan) 0.5 mg PO BID [facility] Last Admin: 09/18/17 07:29 Dose: 0.5 mg Lorazepam (Ativan) 0.5 mg PO Q12HR [facility] Last Admin: 09/19/17 07:44 Dose: 0.5 mg Lorazepam (Ativan) 1 mg PO ONETIME ONE Stop: 09/18/17 17:37 Last Admin: 09/18/17 18:11 Dose: Not Given Lorazepam (Ativan) 1 mg IVPUSH ONETIME ONE Stop: 09/18/17 17:51 Last Admin: 09/18/17 18:03 Dose: 1 mg Magnesium Oxide (Magnesium Oxide) 400 mg PO ONETIME ONE Stop: 09/18/17 12:58 Last Admin: 09/18/17 14:00 Dose: 400 mg Ondansetron HCl (Zofran) 4 mg IVPUSH ONETIME ONE Stop: 09/18/17 17:50 Last Admin: 09/18/17 18:04 Dose: 4 mg Temazepam (Restoril) 15 mg PO BEDTIME PRN PRN Reason: Insomnia Last Admin: 09/17/17 21:37 Dose: 15 mg - Exam General: Reports: Alert, Oriented, Cooperative, No Acute Distress HEENT: Reports: Pupils Equal, Pupils Reactive, EOMI, Mucous Membr. Moist/[place] Neck: Reports: Supple Lungs: Reports: Clear to Auscultation, Normal Respiratory Effort Cardiovascular: Reports: Regular Rate, Regular Rhythm GI/Abdominal Exam: Normal Bowel Sounds, Soft, Non-Tender, No Distention (Female) Exam: Deferred Rectal (Female) Exam: Deferred Back Exam: Denies: CVA Tenderness (L), CVA Tenderness (R) Extremities: Normal Inspection, Normal Range of Motion, Non-Tender, Normal Capillary Refill Skin: Reports: Warm, Dry, Intact Neurological: Reports: No New Focal Deficit Psy/Mental Status: Reports: Alert, Other (flatter affect, mildly anxious in appearance at this time) *Q Meaningful Use (DIS) - VTE *Q VTE Criteria *Q: - Stroke *Q Stroke Criteria *Q: - AMI *Q AMI Criteria *Q:
--- NOTE | 2017-09-20 14:35 | PCM.SN ---
- Free Text/Narrative Note: EKG showed NSR. Requested new EKG to be performed at 1054 due to motion/ artifact felt to contribute to poor EKG at 0750. Heart rate 67. NC now shorter at 106ms. Previously 140ms on 09/[address] changes.
== END 2017-09-20 16:30 | DRG 139 ==
LOC: LL.ED 05:12 → LL.MS 08:39
PROVIDERS: ADMIT Family Medicine; ATTEND Family Medicine
DX: J11.08 Influenza due to unidentified influenza virus with specified pneumonia (principal); J18.0 Bronchopneumonia, unspecified organism; J44.0 Chronic obstructive pulmonary disease with (acute) lower respiratory infection; E86.0 Dehydration; F41.8 Other specified anxiety disorders; E03.9 Hypothyroidism, unspecified; R91.1 Solitary pulmonary nodule; K21.9 Gastro-esophageal reflux disease without esophagitis; R79.1 Abnormal coagulation profile; M15.0 Primary generalized (osteo)arthritis; H54.7 Unspecified visual loss; Z87.891 Personal history of nicotine dependence; Z79.899 Other long term (current) drug therapy; F41.0 Panic disorder [episodic paroxysmal anxiety]
CPT/HCPCS: 36415; 71045; 71275; 74022; 80053; 80305; 81001; 82150; 82272; 82550; 82553; 82607; 82746; 83540; 83550; 83605; 83690; 83735; 83880; 84443; 84484; 85025; 85379; 87040; 87081; 87430; 93005; 93970; 94640; 96361; 96374; 99285; A9270-GY; J0456; J1650; J1956; J2060; J2405; J3360; J7050; J7120; Q9967